=== PATIENT | female | born 1935 | race Caucasian/White ===

== ENCOUNTER 2016-04-12 13:43 | Emergency (ER) | payer OTHER ==
[~2016-04-12] VITALS: Ht 157.5 cm; Wt 54.5 kg
[2016-04-12] MEDS ORDERED: INSNOV SQ (14:09)
[2016-04-12] MEDS ORDERED: NPH,100V SQ (14:09)
[2016-04-12] MEDS ORDERED: DIVA125SP PO (14:09)
[2016-04-12] MEDS ORDERED: AMLO5TAB66 PO (14:09)
[2016-04-12] MEDS ORDERED: TRAZ-144 PO (14:09)
[2016-04-12] MEDS ORDERED: FAMO20 PO (14:09)
[2016-04-12 14:33] LABS: BASOPHILS % (AUTO) 0.4 % (0.0-2.0); EOSINOPHILS % (AUTO) 0.9 % (1.0-6.0); HEMATOCRIT 38.2 % (36-46); HEMOGLOBIN 12.7 g/dL (12.0-16.0); LYMPHOCYTES # (AUTO) 2.9 K/uL (1.0-4.8); LYMPHOCYTES % (AUTO) 36.5 % (22.0-44.0); MEAN CORPUSCULAR HEMOGLOBIN 30.3 pg (26.0-34.0); MEAN CORPUSCULAR HGB CONC 33.2 G/dL (31.0-37.0); MEAN CORPUSCULAR VOLUME 91 fL (80-100); MONOCYTES # (AUTO) 0.7 K/uL (0.1-1.0); MONOCYTES % (AUTO) 8.2 % (2.0-9.0); NEUTROPHILS # (AUTO) 4.3 K/uL (1.8-7.7); PLATELET COUNT (AUTO) 167 K/uL (150-450); RED BLOOD CELL COUNT(AUTO) 4.18 MIL/uL (4.00-5.20); RED CELL DISTRIBUTION WIDTH 14.2 % (11.5-14.5)
[2016-04-12 14:44] LABS: CALCIUM, TOTAL 9.9 mg/dL (8.8-10.5); CREATININE 1.3 mg/dL (0.60-1.30); POTASSIUM 3.6 mmol/L (3.5-5.1)
[2016-04-12 14:54] LABS: ALBUMIN 4.4 g/dL (3.4-5.0); BILIRUBIN,TOTAL 0.4 mg/dL (0.1-1.0); TOTAL PROTEIN, SERUM 8.4 g/dL (6.4-8.2)
[2016-04-12] MEDS ORDERED: SODIUM CHLORIDE 0.9% 1,000 ML IV ONE (15:30)
[2016-04-12] MEDS ORDERED: AMLO-512 PO (15:31)
[2016-04-12 16:36] LABS: APPEARANCE,URINE CLEAR (CLEAR); GLUCOSE, URINE (UA) 100 mg/dL (NEGATIVE); KETONES,URINE NEGATIVE (NEGATIVE); LEUKOCYTE ESTERASE ,URINE NEGATIVE (NEGATIVE); OCCULT BLOOD,URINE NEGATIVE (NEGATIVE); PROTEIN,URINE NEGATIVE (NEGATIVE)
[2016-04-12 16:55] LABS: ADD UA MICROSCOPIC YES; RBC,URINE None Seen /HPF (0-2); SQUAMOUS EPITHELIAL CELL,UR Few /LPF (None Seen); WBC,URINE None Seen /HPF (0-5)
[2016-04-12 18:05] VITALS: BP 183/80
== END 2016-04-12 20:34 | disposition home or self-care (01) ==
LOC: EMS 13:46
DX: E86.0 Dehydration (principal); R41.82 Altered mental status, unspecified; E11.9 Type 2 diabetes mellitus without complications; I10 Essential (primary) hypertension; Z79.4 Long term (current) use of insulin
CPT/HCPCS: 70450; 82962; 93005; 99285